=== PATIENT | female | born 1995 | race Two or more races ===

== ENCOUNTER 2017-07-25 17:57 | Emergency (ER) | payer SELFPAY ==
[~2017-07-25] VITALS: Ht 162.6 cm; Wt 108.0 kg
[2017-07-25] MEDS ORDERED: ACETAMINOPHEN 325 MG TAB PO ONE (18:15)
[2017-07-25 18:40] VITALS: BP 139/86
[2017-07-25 18:50] LABS: Urine Blood Negative /uL (Negative); Urine Color Yellow (Yellow); Urine Glucose Normal (Normal); Urine Ketone 2+ (Negative); Urine Mucus FEW (None Seen); Urine Nitrite Negative (Negative); Urine RBC 1 /hpf (0 - 4); Urine Squamous Epithelial Cell FEW /hpf (<5)
[2017-07-25] MEDS ORDERED: IBUPROFEN 600 MG TAB PO ONE (19:15)
[2017-07-25 22:03] LABS: Urine Bilirubin 1+ (Negative)
== END 2017-07-25 19:38 | disposition home or self-care (01) ==
LOC: ER 17:57
DX: J03.90 Acute tonsillitis, unspecified (principal)
CPT/HCPCS: 81001

== ENCOUNTER 2023-08-28 13:17 | Emergency (ER) | payer BC, OTHER ==
[~2023-08-28] VITALS: Ht 157.5 cm; Wt 103.1 kg
[2023-08-28 16:49] LABS: Basophils # (auto) 0 10 ^3/uL (0-0.2); Basophils % (auto) 0.8 % (0.0-2.0); Eosinophils # (auto) 0.1 10 ^3/uL (0-0.8); Hematocrit 40.2 % (36.0-46.0); Hemoglobin 13.2 g/dL (12.2-16.2); Lymphocytes # (auto) 2.3 10 ^3/uL (0.4-5.4); Lymphocytes % (auto) 43.2 % (10.0-50.0); Mean Corpuscular Hemoglobin 30.1 pg (28.0-32.0); Mean Corpuscular Hgb Conc. 32.9 g/dL (32.0-36.0); Mean Corpuscular Volume 91.5 fL (80.0-100.0); Monocytes # (auto) 0.3 10 ^3/uL (0-1.3); Monocytes % (auto) 6.2 % (0.0-12.0); Neutrophils # (auto) 2.6 10 ^3/uL (1.6-8.6); Neutrophils % (auto) 48.8 % (37.0-80.0); Red Blood Cells 4.39 10^6/uL (4.0-5.20); Red Cell Distribution Width 14.7 % (11.8-14.3); White Blood Cell 5.3 10^3/uL (4.4-10.8)
[2023-08-28 17:06] LABS: Alanine Aminotransferase 19 U/L (7-40); Alkaline Phosphatase 64 U/L (46-116); Anion Gap 12 (5-15); Aspartate Aminotransferase 14 U/L (13-40); BUN/Creatinine Ratio 14.3 (10.0-20.0); Blood Urea Nitrogen 6 mg/dL (9-23); Carbon Dioxide 21 mmol/L (20-30); Chloride 107 mmol/L (98-107); Glucose 56 mg/dL (74-106); Sodium 140 mmol/L (136-145)
[2023-08-28 17:07] LABS: Albumin 3.1 g/dL (3.2-4.8); Bilirubin, Total 0.2 mg/dL (0.2-1.0); Total Protein 4.8 g/dL (5.7-8.2)
[2023-08-28 17:58] LABS: Calcium 5.9 mg/dL (8.5-10.1)
[2023-08-28 19:18] LABS: Urine Bacteria NONE SEEN /hpf (None Seen); Urine Blood Negative /uL (Negative); Urine Clarity Clear (Clear); Urine Color Yellow (Yellow); Urine Hyaline Cast FEW /lpf (0 - 2); Urine Mucus FEW (None Seen); Urine Protein, UAD TRACE (Negative); Urine Specific Gravity 1.032 (1.001-1.035); Urine Urobilinogen Normal (Negative); Urine WBC 1 /hpf (0 - 5)
[2023-08-28] MEDS ORDERED: CALCIUM GLUC 1,000mg/50ml-NS 50 ML IV ONE (21:00)
[2023-08-28] MEDS ORDERED: ERGO1CAP23 PO (21:17)
[2023-08-28 21:43] VITALS: BP 122/66; PULSE 65; RESP 16; TEMP 97.6; O2SAT 98
== END 2023-08-28 21:46 | disposition home or self-care (01) ==
LOC: ER 13:17
DX: R55 Syncope and collapse (principal); E83.51 Hypocalcemia
CPT/HCPCS: 36415; 70450; 71045; 80053; 81001; 81025; 84484; 85025; 93005; 93886